=== PATIENT | male | born 1950 | race Caucasian/White ===

== ENCOUNTER 2019-10-09 08:35 | Outpatient (CLI) | payer MEDICARE ==
[2019-10-09] MEDS ORDERED: Iopamidol 370 76% 100 ML VIAL ONE (09:00)
--- NOTE | 2019-10-09 10:18 | CT ---
CT abdomen with and without contrast CT pelvis with and without contrast: (CT urogram) DATE: 10/09/2019 HISTORY: 68-year-old male with recurrent urinary tract infections, microscopic hematuria and urinary frequency . TECHNIQUE: IV contrast: 100 mL [id number]. Precontrast, nephrographic/venous phase, and excretory/pyelographic, phase scans of entire abdomen an d pelvis. COMPARISON: None FINDINGS: There are multiple tiny focal hypodensities throughout the bilateral renal upper, mid, and lower pole cortex. Most are less than 1 cm and are too small to characterize. The largest is a round 1.5 cm cortical cyst at the apex of the left upper pole. There is also 1.5 cm exophytic cyst protruding supe riorly from the apex of the right renal upper pole. No obvious renal neoplastic tumor mass is identified. No renal, ureteral, or bladder calculus. No hydronephrosis. Liver, pancreas, spleen, adrenals, and appendix, are normal. Mural thickness of urinary bladder diffu sely at upper limits of normal. Heterogeneous density at the posterior aspect of the urinary bladder lumen on excretory phase could represent admixture of enhanced and nonenhanced urine, but cor relation with findings on cystoscopy is recommended. Atherosclerotic calcification without aneurysm of abdominal aorta. No colonic diverticulitis, ascites, pneumoperitoneum, or pleural effusion. No mesenteric, retroperitoneal, trey hepatis, or iliac chain major lymphadenopathy. Minimally enlarg ed trey hepatis lymph nodes. No suspicious skeletal lesions. IMPRESSION: 1.) 2 small upper pole bilateral renal cysts, one on each side. 2) numerous other tiny, subcentimeter focal lesions in bilateral renal parenchyma, too small to fabrizio cterize.
== END 2019-10-09 08:36 | disposition home or self-care (01) ==
LOC: SCSCT 08:35
PROVIDERS: ATTEND Urology
DX: N39.0 Urinary tract infection, site not specified (principal); R31.29 Other microscopic hematuria; N28.1 Cyst of kidney, acquired; N28.89 Other specified disorders of kidney and ureter
CPT/HCPCS: 74178; 82565; Q9967

== ENCOUNTER 2019-11-30 06:05 | Outpatient (CLI) | payer MEDICARE ==
[2019-11-30 09:25] LABS: Hemoglobin 15.9 g/dL (14.0-18.0); Mean Corpuscular HGB CONC 33.2 g/dL (32.0-36.0); Mean Corpuscular Hemoglobin 33.3 pg (27.0-31.0); Mean Platelet Volume 7.4 fL (7.4-10.4); Platelet Count 191 thou/uL (130-400); RBC Distribution Width 12.8 % (11.5-14.5); Red Blood Cell (RBC) Count 4.78 mill/uL (4.70-6.10); White Blood Cell (WBC) Count 7.2 thou/uL (4.8-10.8)
[2019-11-30 09:29] LABS: Bacteria/HPF None Seen HPF (None Seen); Bilirubin Negative (Negative); Blood, Urine Negative (Negative); Clarity Clear (Clear); Glucose, Urine (Dipstick) Normal (Negative); Leukocyte Negative Leu/uL (Negative); Nitrite Negative (Negative); Protein, Urine (Dipstick) Negative (Neg-Trace); Squamous Epithelial None Seen HPF (0-3); Urobilinogen Normal mg/dL (Less than 2); WBC/HPF 0-3 HPF (0-3)
[2019-11-30 09:40] LABS: RBC/HPF 0-3 HPF (0-3)
[2019-11-30 09:41] LABS: Sperm/HPF Rare HPF (None Seen)
[2019-11-30 09:46] LABS: Anion Gap 12 mmol/L (10-20); BUN (Urea Nitrogen) 17 mg/dL (8.4-25.7); Calc. Creatinine Clearance 0 mL/min (70-130); Carbon Dioxide 30 mmol/L (23-31); Chloride 103 mmol/L (98-107); Estimated GFR-MDRD 63; Glucose 117 mg/dL (80-115); Potassium 3.7 mmol/L (3.5-5.1); Sodium 141 mmol/L (136-145)
[2019-11-30 09:51] LABS: PTT 39.7 SEC (22.9-36.1)
== END 2019-11-30 06:06 | disposition home or self-care (01) ==
LOC: LABBT 06:05
PROVIDERS: ATTEND Urology
DX: Z01.818 Encounter for other preprocedural examination (principal); Z12.5 Encounter for screening for malignant neoplasm of prostate; N40.1 Benign prostatic hyperplasia with lower urinary tract symptoms; N39.0 Urinary tract infection, site not specified; R31.29 Other microscopic hematuria; R35.1 Nocturia; N28.1 Cyst of kidney, acquired; Z72.0 Tobacco use
CPT/HCPCS: 80048; 81001; 85027; 85610; 85730; 93005; 93010

== ENCOUNTER 2019-12-05 07:19 | Day surgery (SDC) | payer MEDICARE ==
[2019-11-30 08:37] VITALS: BMI 26.6
[2019-12-05] MEDS ORDERED: Sodium Chloride 0.9% 100 ML ONE (08:32)
[2019-12-05] MEDS ORDERED: Piperacillin/Tazobactam 3.375 GM VIAL ONE (08:32)
[2019-12-05] MEDS ORDERED: Fentanyl 100 MCG/2 ML VIAL ONE (09:04)
[2019-12-05] MEDS ORDERED: PROPOFOL 200 MG/20 ML VIAL ONE (10:19)
[2019-12-05] MEDS ORDERED: Lidocaine 1% PF 5 ML VIAL ONE (10:19)
[2019-12-05] MEDS ORDERED: Phenazopyridine HCl 97.5 MG TABLET ONE (10:24)
--- NOTE | 2019-12-05 12:05 | OP ---
DATE OF PROCEDURE: 12/05/2019 PREOPERATIVE DIAGNOSES: 1. Mr. Adams is a 69-year-old male with history of recurrent urinary tract infection. 2. Benign prostatic hyperplasia. POSTOPERATIVE DIAGNOSES: 1. Mr. Adams is a 69-year-old male with history of recurrent urinary tract infection. 2. Benign prostatic hyperplasia. PROCEDURES PERFORMED: Cystoscopy, evacuation of bladder stones/debris, UroLift implant x4.. ANESTHESIA: TIVA. COMPLICATIONS: None apparent. DISPOSITION: To recovery room in stable condition. SPECIMEN: Stone for chemical analysis. INDICATIONS FOR PROCEDURE AND HISTORY: Mr. Adams is a 69-year-old male with history of recurrent UTI, BPH, on dual medical therapy, presents for UroLift. He underwent workup, which demonstrates he is an excellent candidate for UroLift . He has been fully informed that recurrent UTI may still persist despite BPH surgery , risks and complications of the procedure was reviewed with him in detail including, but not limited to, injury to adjacent organs, chronic pain, bleeding, pain, infection, possible urolithiasis requiring secondary procedure, migrated implant , pelvic pain. All questions answered to his satisfaction and desired to proceed. DESCRIPTION OF PROCEDURE: After an informed consent was signed, the patient was taken to the operating room, provided broad-spectrum antibiotic therapy and placed in dorsal lithotomy position. A cystoscopy was performed demonstrating normal anterior urethra. Prostatic urethra again demonstrates bilobar hyperplasia with high median bar. Bilobar hyperplasia was obstructing, moderate. Bladder was entered, which demonstrated diffuse trabeculation. There was some stone sediment debris in the trigone. Largest stone debris about 5 or 6 mm. These were Ellik evacuated, sent for chemical analysis. The UOs were well away from the bladder neck. At this time, we transitioned to UroLift scope. Using the visual obturator, it was placed to the level of the bladder. Staying about 1.5 cm proximal to the bladder neck, we implanted left side first. As he does have a high median bar, initially with the two implants, he did have a MIKE effect at the bladder neck. Subsequent implants were placed stacking at the proximal urethra, staying away from the bladder neck region demonstrating resolution of his MIKE, and excellent anterior channel was created with a wide bladder neck. There was resolution of obstructing lateral lobes and a nice channel was created. No complications were appreciated and the urethral tabs were well within the prostatic urethra. He tolerated the procedure well and transported to the recovery room in stable condition. He will undergo voiding trial postop. He will continue his BPH medications. The patient discharged with Omnicef for course of 7 days, Azo p.r.n. He will return to clinic in 2 weeks for peak flow PVR IPSS. Job ID: [id number] MTDD
== END 2019-12-05 11:14 | disposition home or self-care (01) ==
LOC: SDC 07:19
PROVIDERS: ATTEND Urology
PROC: 0TCB8ZZ Extirpation of Matter from Bladder, Via Natural or Artificial Opening Endoscopic (ICD-10-PCS; principal; 2019-12-05)
PROC: 0T7D8DZ Dilation of Urethra with Intraluminal Device, Via Natural or Artificial Opening Endoscopic (ICD-10-PCS; 2019-12-05)
DX: N40.1 Benign prostatic hyperplasia with lower urinary tract symptoms (principal); R35.1 Nocturia; N13.8 Other obstructive and reflux uropathy; N32.89 Other specified disorders of bladder; N21.0 Calculus in bladder; N39.0 Urinary tract infection, site not specified; B96.20 Unspecified Escherichia coli [E. coli] as the cause of diseases classified elsewhere; N28.1 Cyst of kidney, acquired; I10 Essential (primary) hypertension; E78.00 Pure hypercholesterolemia, unspecified; F17.210 Nicotine dependence, cigarettes, uncomplicated; Z79.82 Long term (current) use of aspirin; Z79.899 Other long term (current) drug therapy
CPT/HCPCS: 82365; 88300; C1889; C9740; J2001; J2543; J2704; J3010; J3490

== ENCOUNTER 2022-04-05 11:09 | Outpatient (CLI) | payer MEDICARE | END 2022-04-05 11:10 | disposition home or self-care (01) | LOC: SCSRAD 11:09 | PROVIDERS: ATTEND Family Medicine | DX: M25.511 Pain in right shoulder (principal) ==

== ENCOUNTER 2023-06-01 08:20 | Outpatient (CLI) | payer MEDICARE, OTHER | END 2023-06-01 08:21 | disposition home or self-care (01) | LOC: SCSRAD 08:20 | PROVIDERS: ATTEND Specialist | DX: M51.17 Intervertebral disc disorders with radiculopathy, lumbosacral region (principal); M47.816 Spondylosis without myelopathy or radiculopathy, lumbar region | CPT/HCPCS: 72110 ==

== ENCOUNTER 2023-09-14 10:48 | Outpatient (CLI) | payer OTHER | END 2023-09-14 10:49 | disposition home or self-care (01) | LOC: ULT 10:48 | PROVIDERS: ATTEND Internal Medicine Nephrology | DX: N18.30 Chronic kidney disease, stage 3 unspecified (principal); N28.1 Cyst of kidney, acquired | CPT/HCPCS: 76770 ==

== ENCOUNTER 2024-05-15 08:20 | Outpatient (CLI) | payer OTHER | END 2024-05-15 08:21 | disposition home or self-care (01) | LOC: NM 08:20 | PROVIDERS: ATTEND Internal Medicine Endocrinology, Diabetes & Metabolism | DX: E05.80 Other thyrotoxicosis without thyrotoxic crisis or storm (principal) | CPT/HCPCS: 78014; A9516 ==

== ENCOUNTER 2025-08-15 10:39 | Outpatient (CLI) | payer OTHER | END 2025-08-15 10:40 | disposition home or self-care (01) | LOC: SCSMRI 10:39 | PROVIDERS: ATTEND Specialist | DX: M54.12 Radiculopathy, cervical region (principal); M48.02 Spinal stenosis, cervical region | CPT/HCPCS: 72141 ==